=== PATIENT | male | born 1980 | race Caucasian/White ===

== ENCOUNTER → 2020-08-04 13:45 | Outpatient (BNVA) | payer OTHER, SELFPAY | PROVIDERS: Visit Provider Nurse Practitioner Family | DX: Z11.59 Encounter for screening for other viral diseases (principal); Z20.828 Contact with and (suspected) exposure to other viral communicable diseases; J06.9 Acute upper respiratory infection, unspecified | CPT/HCPCS: 87635 ==

== ENCOUNTER 2020-08-14 09:46 | Emergency (ER) | payer SELFPAY ==
[2020-08-14 09:55] VITALS: BP 121/92; PULSE 83; RESP 18; TEMP 36.8; O2SAT 100; BMI 28.1
[2020-08-14 10:04] VITALS: BP 121/92; PULSE 82; RESP 18; O2SAT 100
--- NOTE | 2020-08-14 10:16 | ED_ITS ---
HPI - Back Pain/Injury General: Chief Complaint: Back Pain/Injury Stated Complaint: BACK PAIN Time Seen by Provider: 08/14/20 09:53 History of Present Illness: HPI Narrative: Patient has static on her right side. Started after moving here from [place] to move a lot of boxes yesterday has history of chronic back pain untreated. Said he woke up this morning is really hurting down his right side down to his foot hard to get up and out of bed he has spasm going take steps said this is occurred from no injury when he fell through floor 4 years ago MD elicited complaint: back pain Pertinent past history: prior back pain Onset (ago): hour(s) Timing: constant Severity: similar to previous episodes Similar Symptoms Previously: Yes Quality: aching Location: lumbar spine Radiation: right upper leg and right leg below the knee Exacerbating factors: sitting upright and walking Relieving factors: immobilization Context: while lifting, turning/twisting and bending Associated symptoms: Reports no associated symptoms; Deny abdominal pain, chills, fever(s), nausea or vomiting Work related injury: No Review of Systems Const: Denies: fever(s), chills or body aches Eyes: Denies: change in vision or blurry vision ENMT: Denies: throat pain or nasal congestion Card: Denies: chest pain or dyspnea on exertion Resp: Denies: dyspnea, productive cough or non-productive cough GI: Denies: abdominal pain, nausea or vomiting : Denies: difficulty urinating Musc: Reports: back pain and muscle cramps; Denies: extremity pain Skin/Breast: Denies: rash Neuro: Denies: headache(s) Psych: Denies: anxiety or depression Wallace/Lymph: Denies: easy bruising PFSH ED PFSH: Social History (Updated 08/14/20 @ 10:06 by Colette Patel RN) Smoking and tobacco status: current every day smoker Physical Exam Const: COMMON NORMALS: no acute distress, average body habitus and patient oriented x3 HENMT: COMMON NORMALS: normocephalic HEAD & SCALP: normal to inspection and normocephalic FACE & SINUS: normal facial exam Eye: COMMON NORMALS: conjunctivae normal GENERAL EYE: appearance normal, both eyes and all related structures CONJUNCTIVA: Yes conjunctivae normal Neck/C-Spine: COMMON NORMALS: no JVD Chest: COMMONS NORMALS: normal inspection of the chest Resp: COMMON NORMALS: normal respiratory effort and clear to auscultation bilaterally AUSCULTATION: clear to auscultation bilaterally Cardio: COMMON NORMALS: no JVD, regular rate and regular rhythm RATE: regular rate RHYTHM: regular rhythm GI: COMMON NORMALS: Normal to inspection, nondistended, normoactive bowel sounds present Back/Pelvis: LUMBAR SPINE/LOWER BACK: Yes straight leg raise positive right (Bilateral is positive also) Straight leg raise positive details right: at 30 degrees Extremity: COMMON NORMALS: normal to inspection Neuro: COMMON NORMALS: patient oriented x3 Course Vital Signs: Vital signs: Vital Signs Temperature 97.4 F L 08/14/20 10:44 Pulse Rate 69 08/14/20 10:44 Respiratory Rate 18 08/14/20 10:44 Blood Pressure 121/90 08/14/20 10:44 Pulse Oximetry 99 08/14/20 10:44 Discharge Plan Discharge Patient Disposition: Home Clinical Impression: Strain of lumbar region Qualifiers: Encounter type: initial encounter Qualified Code(s): S39.012A - Strain of muscle, fascia and tendon of lower back, initial encounter Sciatica Qualifiers: Laterality: right Qualified Code(s): M54.31 - Sciatica, right side Condition: Stable Prescriptions: New prednisone 20 mg tablet 20 mg PO DAILY Qty: 14 RF: 0 tramadol 50 mg tablet 50 mg PO Q8H PRN (Reason: pain) Qty: 10 RF: 0 cyclobenzaprine 5 mg tablet 5 mg PO TID PRN (Reason: muscle spasm) Qty: 14 RF: 0 Discharge Orders: Discharge Order (Routine); Ordered 08/14/20 Ordered By: Tulio Castaneda Discharge Diet: Usual diet Discharge Activity: Limit activity as instructed Patient Instructions: Sciatica (ED), Lumbar Radiculopathy (ED) Activity Restrictions/Additional Instructions: Follow-up with medical provider as directed. Take medications as prescribed. Return to the ER or your medical provider if condition worsens. Please read and understand discharge instructions. If any questions ask please. No lifting over 10 pounds for next 4 weeks. Can use ice to the back to help out. Establish primary care provider for follow-up. Discharge Date/Time: 08/14/20 10:46 Coding Level of Care Code ED [employer]ist for Chg Fwd Exam Comprehensive
[2020-08-14] MEDS: TRAMadol 50 mg Tablet PO (10:22)
[2020-08-14] MEDS: orphenadrine 30 mg/mL Inj 2 mL 60 MG IM (10:23)
[2020-08-14] MEDS: methylPREDNISolone (DEPO) 80 MG/ML INJ 1 mL IM (10:23)
[2020-08-14 10:44] VITALS: BP 121/90; PULSE 69; RESP 18; TEMP 36.3; O2SAT 99
== END 2020-08-14 10:46 | disposition home or self-care (01) ==
PROVIDERS: Emergency Provider Nurse Practitioner Family
DX: S39.012A Strain of muscle, fascia and tendon of lower back, initial encounter (principal); M54.31 Sciatica, right side; F17.210 Nicotine dependence, cigarettes, uncomplicated; X50.0XXA Overexertion from strenuous movement or load, initial encounter
CPT/HCPCS: 12345; 96372; 99281; 99283; J1040; J2360

== ENCOUNTER 2020-08-20 08:35 | Outpatient (CLI) | payer SELFPAY ==
--- NOTE | 2020-08-20 08:54 | XR_ITS ---
WS: [id number] LUMBAR SPINE: 6 VIEWS TECHNIQUE: AP, lateral, and L5-S1 spot. Lateral views in neutral, flexion and extension. HISTORY: back pain COMPARISON: None available. Normal lumbar alignment. No fractures or disc space narrowing. With flexion and extension there is no instability. No loss of disc space or vertebral body height. SI joints are symmetric bilaterally. No soft tissue abnormalities. XR/XR lumbar spine 6V w f/e [id number] IMPRESSION: Normal lumbar spine. No lumbar spine instability.
--- NOTE | 2020-08-20 08:54 | XR_ITS ---
WS: [id number] THORACIC SPINE TECHNIQUE: AP and lateral views are performed. HISTORY: back pain COMPARISON: None available. Mild increase in the thoracic kyphosis. Very minimal spondylitic changes at the endplates. No fractur e. No bone destruction. Pedicles are all identified. XR/XR thoracic spine 3V* [id number] IMPRESSION: Very mild thoracic spondylosis.
== END 2020-08-20 08:36 | disposition home or self-care (01) ==
LOC: RADWPI 08:39
PROVIDERS: PCP Family Medicine; Visit Provider Family Medicine
DX: M54.5 Low back pain (principal); M54.6 Pain in thoracic spine; M47.814 Spondylosis without myelopathy or radiculopathy, thoracic region
CPT/HCPCS: 72072; 72114